=== PATIENT | female | born 1980 | race Caucasian/White ===

== ENCOUNTER → 2016-08-05 | Outpatient (CLI) | payer MEDICAID ==
[2016-08-05 15:35] LABS: ABSOLUTE BASOPHILS # (AUTO) 0.1 10^3/uL (0.0-0.2); ABSOLUTE EOSINOPHILS # (AUTO) 0.1 10^3/uL (0.0-0.6); ABSOLUTE MONOCYTES (AUTO) 0.3 10^3/uL (0.1-1.4); ABSOLUTE NEUT (AUTO) 4.9 10^3/uL (1.7-8.2); BASOPHILS % (AUTO) 1.1 % (0-2); EOSINOPHILS % (AUTO) 1.8 % (0-6); HEMATOCRIT 32.1 % (36.0-47.0); HEMOGLOBIN 10.6 g/dL (12.0-15.5); HGB HCT DIFFERENCE -0.3; LYMPHOCYTES % (AUTO) 26.5 % (13-45); MEAN CORPUSCULAR HEMOGLOBIN 26.7 pg (27.0-33.4); MEAN CORPUSCULAR HGB CONC 32.9 g/dL (32.0-36.0); MEAN CORPUSCULAR VOLUME 81 fl (80-97); MONOCYTES % (AUTO) 4.6 % (3-13); RED BLOOD COUNT 3.96 10^6/uL (3.72-5.28); RED CELL DISTRIBUTION WIDTH 14.8 % (11.5-14.0); WHITE BLOOD COUNT 7.5 10^3/uL (4.0-10.5)
[2016-08-05 15:54] LABS: ANION GAP 13 (5-19); BLOOD UREA NITROGEN 19 mg/dL (7-20); CALCIUM 9.6 mg/dL (8.4-10.2); CARBON DIOXIDE 26 mmol/L (22-30); CHLORIDE 101 mmol/L (98-107); GLUCOSE 78 mg/dL (75-110); POTASSIUM 4.5 mmol/L (3.6-5.0); SODIUM 140.3 mmol/L (137-145)
[2016-08-05 16:01] LABS: LITHIUM < 0.2 mEq/L (0.6-1.2)
[2016-08-05 16:21] LABS: THYROID STIMULATING HORMONE 3.15 uIU/mL (0.47-4.68)
== END ==
LOC: OD 14:26
PROVIDERS: ATTEND Psychiatry & Neurology Psychiatry
DX: F31.9 Bipolar disorder, unspecified (principal); Z79.899 Other long term (current) drug therapy
CPT/HCPCS: 36415; 80048; 80178; 84439; 84443; 85025

== ENCOUNTER 2016-10-15 08:12 | Outpatient (CLI) | payer MEDICAID ==
[~2016-10-15 08:12] MED LIST: DIPHENHYDRAMINE HCL 50 MG/ML VIAL IV PRN; FAMOTIDINE INJ/PF 20 MG/2 ML SDV IV PRN; IRON DEXTRAN COMPLEX 25 MG in SYRINGE, DISPOSABLE, 1 EACH IV PRN; IRON DEXTRAN COMPLEX IV PRN; METHYLPREDNISOLONE INJ 125 MG/2 ML SDV IV PRN; NORMAL SALINE 250 ML IV PRN; NORMAL SALINE IV PRN
[2016-10-15 09:28] VITALS: BP 129/50
== END 2016-10-15 15:31 | disposition home or self-care (01) ==
LOC: II 08:12 → 5TH 08:16 → II 15:31
PROVIDERS: ATTEND Internal Medicine Medical Oncology
PROC: 3E033GC Introduction of Other Therapeutic Substance into Peripheral Vein, Percutaneous Approach (ICD-10-PCS; principal; 2016-10-15)
PROC: 3E0333Z Introduction of Anti-inflammatory into Peripheral Vein, Percutaneous Approach (ICD-10-PCS; 2016-10-15)
DX: E61.1 Iron deficiency (principal); Z98.84 Bariatric surgery status
CPT/HCPCS: 96367; 96375; J1200; J1750; J2930; J7040; J3490; S0028; 96365; 96366; 96376

== ENCOUNTER 2017-01-06 07:28 | Emergency (ER) | payer MEDICAID ==
--- NOTE | 2017-01-06 08:25 | ER Document Report ---
HPI - HPI Patient complains to provider of: dry, burning mouth Onset: Last week Onset/Duration: Persistent Pain Level: 4 Context: 37 yo female with sjogrens syndrome is c/o dry mouty, burning mouth, sore inside lower lip which is really bothering her. No fever or chills. No chest pain or SOB. No cough. No vomiting or diarrhea. Anxious, did not take her xanax this morning. Takes prednisone daily. Associated Symptoms: None Exacerbated by: Denies Relieved by: Denies Similar symptoms previously: Yes Recently seen / treated by doctor: No - ROS ROS below otherwise negative: Yes Systems Reviewed and Negative: Yes All other systems reviewed and negative - CARDIOVASCULAR Cardiovascular: DENIES: Chest pain - REPRODUCTIVE Reproductive: DENIES: : Past Medical History - General Information source: Patient - Social History Smoking Status: Never Smoker Chew tobacco use (# tins/day): No Frequency of alcohol use: None Drug Abuse: None Lives with: Family Family History: Reviewed & Not Pertinent Patient has suicidal ideation: No Patient has homicidal ideation: No - Past Medical History Cardiac Medical History: Reports: None Pulmonary Medical History: Reports: Hx Asthma, Hx Bronchitis Renal/ Medical History: Denies: Hx Peritoneal Dialysis Musculoskeltal Medical History: Reports Other - sjogrens Psychiatric Medical History: Reports: Hx Bipolar Disorder, Hx Depression Surgical Hx: Negative - Immunizations Hx Diphtheria, Pertussis, Tetanus Vaccination: No Vertical Provider Document - CONSTITUTIONAL Agree With Documented VS: Yes Exam Limitations: No Limitations General Appearance: Other - anxious - INFECTION CONTROL TRAVEL OUTSIDE OF THE [place] IN LAST 30 DAYS: No - HEENT HEENT: Normocephalic. negative: Conjuctival Injection, Tympanic Membrane Red Notes: mouth dry, no ulcers, angular chelitis, no thrush. - NECK Neck: Supple. negative: Lymphadenopathy-Left, Lymphadenopathy-Right - RESPIRATORY Respiratory: Breath Sounds Normal, No Respiratory Distress O2 Sat by Pulse Oximetry: 100 - CARDIOVASCULAR Cardiovascular: Regular Rate, Regular Rhythm - GI/ABDOMEN Gastrointestinal: Abdomen Soft, Abdomen Non-Tender - MUSCULOSKELETAL/EXTREMETIES Musculoskeletal/Extremeties: MAEW, FROM - NEURO Level of Consciousness: Awake, Alert - DERM Integumentary: Warm, Dry, No Rash Course - Vital Signs Vital signs: Temp Pulse Resp BP Pulse Ox 98.5 F 90 22 H 139/65 H 100 01/06/17 07:32 01/06/17 07:32 01/06/17 07:32 01/06/17 07:34 01/06/17 07:32 Discharge - Discharge Clinical Impression: Dry mouth, Angular cheilitis Sjogrens syndrome Qualifiers: Sjogren's organ involvement: other organ involvement Qualified Code(s): 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 If you do not receive a survey, then you can go to the [facility] website, [email or web address] and place your comments about your very good care. Thank you very much. It was a pleasure being your medical provider today. Prescriptions: Nystatin 400,000 unit PO QID #120 ml Saliva Substitution Comb No.10 [Neutrasal] 1 each MM DAILY #10 [email or web address] Referrals: LILLY DOS SANTOS MD [Primary Care Provider] - Follow up as needed
[2017-01-06 09:16] VITALS: BP 140/92
== END 2017-01-06 09:18 | disposition home or self-care (01) ==
LOC: ER 07:28
DX: K13.0 Diseases of lips (principal); R68.2 Dry mouth, unspecified; F41.9 Anxiety disorder, unspecified; Z79.899 Other long term (current) drug therapy
CPT/HCPCS: 99283

== ENCOUNTER → 2017-06-02 | Outpatient (CLI) | payer MEDICAID ==
--- NOTE | 2017-06-02 11:09 | WOMENS IMAGING REPORT ---
EXAM DESCRIPTION: TRANSVAGINAL ULTRASOUND COMPLETED DATE/TIME: 06/02/2017 10:22 am REASON FOR STUDY: PELVIC AND PERINEAL PAIN; R10.2 E28.2 POLYCYSTIC OVARIAN SYNDROME R10.2 PELVIC A ND PERINEAL PAIN COMPARISON: None. TECHNIQUE: Dynamic and static grayscale images acquired of the pelvis via transvaginal approach and recorded on PACS. Additional selected color Doppler and spectral images recorded. LIMITATIONS: Body habitus. FINDINGS: UTERUS: Contour normal. No mass. ENDOMETRIAL STRIPE: IUD. CERVIX: Nabothian cyst. RIGHT OVARY: No abnormal masses. RIGHT OVARY DOPPLER: Normal arterial vascular flow without evidence for torsion. LEFT OVARY: No abnormal masses. LEFT OVARY DOPPLER: Normal arterial vascular flow without evidence for torsion. FREE FLUID: None noted. OTHER: No other significant finding. MEASUREMENTS: UTERUS: 9.0 x 5.1 x 4.8 cm ENDOMETRIAL STRIPE: 4 mm RIGHT OVARY: 2.7 x 2.8 x 2.3 cm LEFT OVARY: 2.6 x 1.9 x 3.4 cm IMPRESSION: IUD. No evidence of ovarian cyst. TECHNICAL DOCUMENTATION: JOB ID: [id number] [employer]- All Rights Reserved
== END ==
LOC: WI 09:51
PROVIDERS: ATTEND Obstetrics & Gynecology Gynecology
DX: E28.2 Polycystic ovarian syndrome (principal); R10.2 Pelvic and perineal pain; Z97.5 Presence of (intrauterine) contraceptive device
CPT/HCPCS: 76830

== ENCOUNTER → 2018-05-17 | Outpatient (CLI) | payer MEDICAID ==
--- NOTE | 2018-05-17 20:47 | RADIOLOGY REPORT (SQ) ---
EXAM DESCRIPTION: KNEE LEFT 3 VIEWS COMPLETED DATE/TIME: 05/17/2018 8:35 pm REASON FOR STUDY: LEFT HIP/LEFT KNEE PAIN M25.552 PAIN IN LEFT HIP M25.562 PAIN IN LEFT KNEE Fall COMPARISON: None. NUMBER OF VIEWS: Three views. TECHNIQUE: AP, lateral, and sunrise patella radiographic images acquired of the left knee. LIMITATIONS: None. FINDINGS: MINERALIZATION: Normal. BONES: No acute fracture or dislocation. No worrisome bone lesions. Lateral subluxation of the rome lla. JOINT: No effusion. SOFT TISSUES: No soft tissue swelling. No radio-opaque foreign body. OTHER: No other significant finding. IMPRESSION: No acute fracture. Lateral subluxation of the patella. TECHNICAL DOCUMENTATION: JOB ID: [id number] [employer]- All Rights Reserved Reading location - IP/workstation name: [email or web address]
--- NOTE | 2018-05-17 20:48 | RADIOLOGY REPORT (SQ) ---
EXAM DESCRIPTION: HIP LEFT AP/LATERAL COMPLETED DATE/TIME: 05/17/2018 8:35 pm REASON FOR STUDY: LEFT HIP/LEFT KNEE PAIN M25.552 PAIN IN LEFT HIP M25.562 PAIN IN LEFT KNEE COMPARISON: None. NUMBER OF VIEWS: Two views. TECHNIQUE: AP pelvis and additional frog-leg view of the left hip. LIMITATIONS: None. FINDINGS: MINERALIZATION: Normal. LEFT HIP: No fracture or dislocation. No worrisome bone lesions. RIGHT HIP: No fracture or dislocation. No worrisome bone lesions. PUBIS AND ISCHIUM: No fracture. PELVIS: No fracture. SACRUM: No fracture or dislocation. No worrisome bone lesions. LOWER LUMBAR SPINE: No fracture or dislocation. No worrisome bone lesions. No significant disc disea se. SOFT TISSUES: IUD in expected location. OTHER: No other significant finding. IMPRESSION: NEGATIVE STUDY OF THE LEFT HIP AND PELVIS. NO RADIOGRAPHIC EVIDENCE OF ACUTE INJURY. TECHNICAL DOCUMENTATION: JOB ID: [id number] [employer]- All Rights Reserved Reading location - IP/workstation name: [email or web address]
== END ==
LOC: RAD 19:49
PROVIDERS: ATTEND Nurse Practitioner Family
DX: M25.552 Pain in left hip (principal); M25.562 Pain in left knee; S83.012A Lateral subluxation of left patella, initial encounter; X58.XXXA Exposure to other specified factors, initial encounter

== ENCOUNTER 2018-05-19 18:38 | Emergency (ER) | payer MEDICAID ==
--- NOTE | 2018-05-19 22:05 | ER Document Report ---
ED General - General Chief Complaint: Trouble Walking Stated Complaint: FALL,HEADACHE Time Seen by Provider: 05/19/18 22:04 Notes: Patient is a 38-year-old female who presents to the ED after being referred from urgent care due to some ataxia. She has been ongoing for approximately a week. She said a few falls. She says this started when she started having a lot of nasal congestion. She says she feels as if her equilibrium is off. She says she has a headache but is more of a sinus headache over her frontal sinuses. Does have a history of chronic vertigo. She is followed by neurologist for this. She also has history of rheumatoid arthritis and sees a certified medical technician for this. She was recent diagnosed with the laterally subluxed patella. She has been referred to orthopedics. She is upcoming appointment with orthopedist in regards to her left knee. She says that she does have some knee pain when she walks however she feels that her gait disturbance is more related to her equilibrium being off. She says she feels as if she starts to lean to the left when she walks. She denies any discoordination of movement of her hands or feet. No facial droop or slurred speech. No fevers. No other complaints at this time. TRAVEL OUTSIDE OF THE [place] IN LAST 30 DAYS: No - Related Data Allergies/Adverse Reactions: No Known Allergies Allergy (Verified 05/19/18 18:39) Past Medical History - Social History Smoking Status: Never Smoker Chew tobacco use (# tins/day): No Frequency of alcohol use: None Drug Abuse: None Family History: Reviewed & Not Pertinent Patient has suicidal ideation: No Patient has homicidal ideation: No - Past Medical History Cardiac Medical History: Reports: Hx Heart Attack - IRREGULAR HEARTRATE AT TIMES Denies: Hx Coronary Artery Disease, Hx Hypertension Pulmonary Medical History: Reports: Hx Asthma, Hx Bronchitis Denies: Hx COPD, Hx Pneumonia Neurological Medical History: Denies: Hx Cerebrovascular Accident, Hx Seizures Renal/ Medical History: Denies: Hx Peritoneal Dialysis Musculoskeletal Medical History: Denies Hx Arthritis Psychiatric Medical History: Reports: Hx Bipolar Disorder, Hx Depression - Immunizations Hx Diphtheria, Pertussis, Tetanus Vaccination: No Review of Systems - Review of Systems Notes: My Normal Review Basic REVIEW OF SYSTEMS: CONSTITUTIONAL : Denies fever, chills, or sweats. EENT: Nasal congestion and sinus pressure CARDIOVASCULAR: Denies chest pain. RESPIRATORY: Denies cough, cold, or chest congestion. Denies shortness of breath, difficulty breathing, or wheezing. GASTROINTESTINAL: Denies abdominal pain. Denies nausea, vomiting, or diarrhea. GENITOURINARY: Denies difficulty urinating, painful urination, burning, frequency, or blood in urine. MUSCULOSKELETAL: Denies neck or back pain or joint pain or swelling. SKIN: Denies rash or skin lesions. NEUROLOGICAL: Denies altered mental status or loss of consciousness. Denies headache. Denies weakness or paralysis or loss of use of either side. Denies problems with speech. Leans to left when walking. Denies sensory or motor loss. ALL OTHER SYSTEMS REVIEWED AND NEGATIVE. Physical Exam - Vital signs Vitals: Temp Pulse Resp BP Pulse Ox 98.4 F 80 18 137/94 H 80 L 05/19/18 18:42 05/19/18 18:42 05/19/18 18:42 05/19/18 18:42 05/19/18 18:42 - Notes Notes: General Appearance: Well nourished, alert, cooperative, no acute distress, no obvious discomfort. Audible nasal congestion on exam. Vitals: reviewed, See vital signs table. Head: no swelling or tenderness to the head Eyes: PERRL, EOMI, Conjuctiva clear Mouth: No decreasd moisture Throat: No tonsillar inflammation, No airway obstruction, No lymphadenopathy Neck: Supple, no neck tenderness, No thyromegaly Lungs: No wheezing, No rales, No rhonci, No accessory muscle use, good air exchange bilaterally. Heart: Normal rate, Regular rythm, No murmur, no rub Abdomen: Normal BS, soft, No rigidity, No abdominal tenderness, No guarding, no rebound, no abdominal masses, no organomegaly Extremities: strength 5/5 in all extremities, good pulses in all extremities, no swelling or tenderness in the extremities, no edema. Skin: warm, dry, appropriate color, no rash Neuro: speech clear, oriented x 3, normal affect, responds appropriately to questions. Cranial nerves II through XII are intact. Distal sensation intact. Patient is on extremities without difficulty. She has normal finger to nose testing. Normal coordination of movements of both hands and feet. She is able to stand. When she stands and walks she does start doing some to her left. She does seem to favor her right leg a little bit more when she walks. Course - Re-evaluation Re-evalutation: 05/20/18 04:14 Patient does have some gait disturbance. She does need some to the left. Initially she did not think she had any recent head imaging and therefore I did do a CT scan of her head which was negative. I talked about MRI and then she remembered that she does have an MRI of her head a few months ago that was ordered by her neurologist. She said this was normal. I think is unlikely that her dizziness or gait disturbance related to a central neurologic etiology because the patient otherwise has normal cerebellar signs including normal finger to nose finger testing, normal coronation movements of both hands and feet. She has no focal weakness or numbness in her extremities. She has no focal neurologic deficits on exam. I think her gait disturbance is related partially to some dizziness that could be related to her chronic vertigo that is worsened by her current sinus infection. Also I think her gait is being affected by the fact that her left knee is giving her problems with the lateral subluxation of her patella. She is scheduled to see an orthopedist about her knee. I will write her prescription for a walker to help prevent her from falling. I encouraged her to get a Velcro knee brace for the left knee. I formed her that even though I think her vertigo is unlikely to be a central neurologic cause that she should still follow-up closely with her neurologist for reevaluation and reassessment. I encouraged her return to ER if she has worsening of her symptoms or feels unwell. Patient agrees with plan will be discharged home. Dictation of this chart was performed using voice recognition software; therefore, there may be some unintended grammatical errors. 05/20/18 04:17 Of note there is one vital signs shows the patient's pulse ox is 80%. This is obviously an error in this patient's pulse ox the remainder of the stay was 100 % on room air without any oxygen supplementation. Patient never had any shortness of breath during her stay. - Vital Signs Vital signs: Temp Pulse Resp BP Pulse Ox 98.6 F 88 17 128/93 H 100 05/20/18 01:01 05/19/18 21:51 05/20/18 01:01 05/20/18 01:01 05/20/18 01:01 - Laboratory Result Diagrams: 05/19/18 22:48 05/19/18 22:48 Laboratory results interpreted by me: 05/19/18 05/19/18 05/19/18 22:48 22:48 23:55 Hgb 10.7 L Hct 31.6 L RDW 14.5 H Carbon Dioxide 32 H Glucose 74 L Urine Urobilinogen 4.0 H - EKG Interpretation by Me Additional EKG results interpreted by me: 05/19/18 22:05 EKG is reviewed and interpreted by me. EKG shows sinus rhythm with a rate of [address] segment elevation or depression. LA interval, QRS durations and intervals are within normal range. Discharge - Discharge Clinical Impression: Ataxia URI (upper respiratory infection) Qualifiers: URI type: unspecified URI Qualified Code(s): J06.9 - Acute upper respiratory infection, unspecified Lateral subluxation of patella Qualifiers: Encounter type: subsequent encounter Laterality: left Qualified Code(s): S83.012D - Lateral subluxation of left patella, subsequent encounter Condition: Good Disposition: HOME, SELF-CARE Additional Instructions: I suspect your dizziness and balance issues could be related to your sinus pressure. Your CT scan is negative. Despite your normal workup today I still want you to follow up within a week with your neurologist. Please have a low threshold to return to the ER if you have worsening of your symptoms, fevers, severe headache, recurrent falls, or feel unwell. Please buy an over the counter knee brace with a hole cut out for your knee cap. Wear this on your left knee for support and follow up with the orthopedist. Prescriptions: Amox Tr/Potassium Clavulanate [Augmentin 875-125 Tablet] 1 tab PO BID 10 Days tablet Walker [Folding Walker] 1 each MC ASDIR PRN #1 each PRN Reason: Referrals: JAKE RG MD [EMERITUS] - Follow up in 3-5 days
[2018-05-19] MEDS ORDERED: MECLIZINE HCL 25 MG TABLET PO ONE (22:23)
--- NOTE | 2018-05-19 22:55 | RADIOLOGY REPORT (SQ) ---
CT HEAD WITHOUT IV CONTRAST HISTORY: Fall. COMPARISON: None. TECHNIQUE: CT scan of the brain without IV contrast. This exam was performed according to our departmental dose-optimization program, which includes automated exposure control, adjustment of the mA and/or kV according to patient size and/or use of iterative reconstruction technique. FINDINGS: The ventricles, cisterns, and sulci are age-appropriate. Gordon-white matter differentiation is preserved without evidence of acute territorial infarction. No intracranial hemorrhage, midline shift, or extra-axial fluid collection is identified. Paranasal sinuses are clear. Calvarium is intact. IMPRESSION: No acute intracranial abnormality.
[2018-05-19 23:03] LABS: ABSOLUTE BASOPHILS # (AUTO) 0.1 10^3/uL (0.0-0.2); ABSOLUTE EOSINOPHILS # (AUTO) 0.1 10^3/uL (0.0-0.6); ABSOLUTE LYMPHOCYTES (AUTO) 2.3 10^3/uL (0.5-4.7); ABSOLUTE MONOCYTES (AUTO) 0.4 10^3/uL (0.1-1.4); ABSOLUTE NEUT (AUTO) 4.9 10^3/uL (1.7-8.2); BASOPHILS % (AUTO) 0.9 % (0-2); EOSINOPHILS % (AUTO) 1.4 % (0-6); HEMATOCRIT 31.6 % (36.0-47.0); HEMOGLOBIN 10.7 g/dL (12.0-15.5); LYMPHOCYTES % (AUTO) 29.6 % (13-45); MEAN CORPUSCULAR HEMOGLOBIN 28.5 pg (27.0-33.4); MEAN CORPUSCULAR HGB CONC 33.8 g/dL (32.0-36.0); MEAN CORPUSCULAR VOLUME 84 fl (80-97); MONOCYTES % (AUTO) 4.9 % (3-13); PLATELET COUNT 270 10^3/uL (150-450); RED BLOOD COUNT 3.76 10^6/uL (3.72-5.28); RED CELL DISTRIBUTION WIDTH 14.5 % (11.5-14.0); SEGMENTED NEUTROPHILS % (AUTO) 63.2 % (42-78); TOTAL CELLS COUNTED % (AUTO) 100 %; WHITE BLOOD COUNT 7.7 10^3/uL (4.0-10.5)
[2018-05-19 23:20] LABS: ALBUMIN 3.7 g/dL (3.5-5.0); ALKALINE PHOSPHATASE 63 U/L (38-126); ANION GAP 6 (5-19); ASPARTATE AMINO TRANSFERASE 26 U/L (14-36); BLOOD UREA NITROGEN 15 mg/dL (7-20); CALCIUM 9.2 mg/dL (8.4-10.2); CARBON DIOXIDE 32 mmol/L (22-30); CHLORIDE 101 mmol/L (98-107); GLUCOSE 74 mg/dL (75-110); POTASSIUM 4.7 mmol/L (3.6-5.0); SODIUM 138.6 mmol/L (137-145)
[2018-05-19 23:21] LABS: ALANINE AMINOTRANSFERASE 52 U/L (9-52); BILIRUBIN,DIRECT 0.2 mg/dL (0.0-0.4); BILIRUBIN,TOTAL 0.3 mg/dL (0.2-1.3); TOTAL PROTEIN 6.3 g/dL (6.3-8.2)
[2018-05-20 00:15] LABS: APPEARANCE,URINE SLIGHTLY-CLOUDY; BILIRUBIN,URINE NEGATIVE (NEGATIVE); COLOR,URINE YELLOW; GLUCOSE, URINE NEGATIVE (NEGATIVE); KETONES,URINE NEGATIVE (NEGATIVE); LEUKOCYTE ESTERASE,URINE NEGATIVE (NEGATIVE); NITRITE,URINE NEGATIVE (NEGATIVE); PROTEIN,URINE NEGATIVE (NEGATIVE); URINE SPECIFIC GRAVITY 1.025
[2018-05-20 01:29] VITALS: BP 128/93
--- NOTE | 2018-05-20 08:16 | EKG REPORT ---
SEVERITY:- BORDERLINE ECG - SINUS RHYTHM BORDERLINE T ABNORMALITIES, INFERIOR LEADS : Confirmed by: Priti Umanzor MD 20-May-2018 08:15:46
== END 2018-05-20 01:25 | disposition home or self-care (01) ==
LOC: ER 18:38
DX: S83.012A Lateral subluxation of left patella, initial encounter (principal); W19.XXXA Unspecified fall, initial encounter; R27.0 Ataxia, unspecified; J01.90 Acute sinusitis, unspecified; R51 Headache; R09.81 Nasal congestion; R42 Dizziness and giddiness; J45.909 Unspecified asthma, uncomplicated; M06.9 Rheumatoid arthritis, unspecified
CPT/HCPCS: 36415; 70450; 80053; 81001; 84703; 85025; 93005; 93010; 99284

== ENCOUNTER 2018-11-07 22:44 | Emergency (ER) | payer MEDICAID ==
[2018-11-08 00:12] LABS: ABSOLUTE BASOPHILS # (AUTO) 0.1 10^3/uL (0.0-0.2); ABSOLUTE EOSINOPHILS # (AUTO) 0.1 10^3/uL (0.0-0.6); ABSOLUTE LYMPHOCYTES (AUTO) 2.4 10^3/uL (0.5-4.7); ABSOLUTE MONOCYTES (AUTO) 0.6 10^3/uL (0.1-1.4); ABSOLUTE NEUT (AUTO) 6.6 10^3/uL (1.7-8.2); EOSINOPHILS % (AUTO) 0.5 % (0-6); LYMPHOCYTES % (AUTO) 24.4 % (13-45); MEAN CORPUSCULAR HEMOGLOBIN 29.2 pg (27.0-33.4); MEAN CORPUSCULAR HGB CONC 33.4 g/dL (32.0-36.0); MEAN CORPUSCULAR VOLUME 87 fl (80-97); MONOCYTES % (AUTO) 6.3 % (3-13); PLATELET COUNT 345 10^3/uL (150-450); RED BLOOD COUNT 3.78 10^6/uL (3.72-5.28); RED CELL DISTRIBUTION WIDTH 14.2 % (11.5-14.0); SEGMENTED NEUTROPHILS % (AUTO) 67.8 % (42-78); TOTAL CELLS COUNTED % (AUTO) 100 %; WHITE BLOOD COUNT 9.7 10^3/uL (4.0-10.5)
[2018-11-08 00:20] LABS: APPEARANCE,URINE SLIGHTLY-CLOUDY; BILIRUBIN,URINE NEGATIVE (NEGATIVE); COLOR,URINE YELLOW; GLUCOSE, URINE NEGATIVE (NEGATIVE); KETONES,URINE NEGATIVE (NEGATIVE); LEUKOCYTE ESTERASE,URINE NEGATIVE (NEGATIVE); NITRITE,URINE NEGATIVE (NEGATIVE); PROTEIN,URINE NEGATIVE (NEGATIVE); URINE SPECIFIC GRAVITY 1.024
[2018-11-08 00:32] LABS: ALANINE AMINOTRANSFERASE 36 U/L (9-52); ALBUMIN 4.4 g/dL (3.5-5.0); ALKALINE PHOSPHATASE 51 U/L (38-126); ANION GAP 14 (5-19); ASPARTATE AMINO TRANSFERASE 25 U/L (14-36); BILIRUBIN,DIRECT 0.2 mg/dL (0.0-0.4); BILIRUBIN,TOTAL 0.6 mg/dL (0.2-1.3); BLOOD UREA NITROGEN 26 mg/dL (7-20); CALCIUM 10.1 mg/dL (8.4-10.2); CARBON DIOXIDE 25 mmol/L (22-30); CHLORIDE 102 mmol/L (98-107); GLUCOSE 76 mg/dL (75-110); POTASSIUM 4.4 mmol/L (3.6-5.0); TOTAL PROTEIN 7.4 g/dL (6.3-8.2)
[2018-11-08 00:54] LABS: FREE T3 3.37 pg/mL (2.77-5.27); FREE T4 (FREE THYROXINE) 0.86 ng/dL (0.78-2.19)
[2018-11-08 02:40] LABS: THYROID STIMULATING HORMONE 2.3 uIU/mL (0.47-4.68)
[2018-11-08 03:43] VITALS: BP 137/86
--- NOTE | 2018-11-08 04:52 | ER Document Report ---
Entered by ONDINA MARIE SCRIBE 11/08/18 0021 Acting as scribe for:VITALY BLEVINS DO ED Dizziness/Weakness - General Chief Complaint: Dizziness Stated Complaint: DIZZY Time Seen by Provider: 11/07/18 23:11 Primary Care Provider: NAY SOUZA NP [COMMUNITY BASED STAFF] - Follow up as needed Notes: Patient is a 38-year-old female that presents to the emergency department complaining of shaking in her arms and hands. Patient states she has also been confused, tired, having seizures, and had memory issues. Specifically the patient states she has had a hard time remembering where her keys are and forgetting common vocabulary. Onset of the shaking was a few months ago but worsened 2 weeks ago. Patient states that she is experiencing numbness in her fingers that started 2 weeks ago. Patient states that her blood sugar was 80 while being shaky and when her blood sugar improved to 110 with eating the tremor improved however today she still had a tremor when it raised to 117. TRAVEL OUTSIDE OF THE [place] IN LAST 30 DAYS: No - Related Data Allergies/Adverse Reactions: No Known Allergies Allergy (Verified 11/08/18 00:22) Past Medical History - General Information source: Patient - Social History Smoking Status: Never Smoker Chew tobacco use (# tins/day): No Frequency of alcohol use: Occasional Drug Abuse: None Family History: Reviewed & Not Pertinent Patient has suicidal ideation: No Patient has homicidal ideation: No - Past Medical History Cardiac Medical History: Reports: Hx Heart Attack - IRREGULAR HEARTRATE AT TIMES, Hx Hypercholesterolemia Pulmonary Medical History: Reports: Hx Asthma, Hx Bronchitis Neurological Medical History: Reports: Hx Migraine - with Vertigo, Hx Seizures Musculoskeletal Medical History: Reports Hx Arthritis - RA Psychiatric Medical History: Reports: Hx Bipolar Disorder, Hx Depression Past Surgical History: Reports: Hx Oral Surgery - Multiple teeth extractions, Hx Tonsillectomy - Immunizations Hx Diphtheria, Pertussis, Tetanus Vaccination: No Review of Systems - Review of Systems Constitutional: See HPI EENT: No symptoms reported Cardiovascular: No symptoms reported Respiratory: No symptoms reported Gastrointestinal: No symptoms reported Genitourinary: No symptoms reported Female Genitourinary: No symptoms reported Musculoskeletal: No symptoms reported Skin: No symptoms reported Hematologic/Lymphatic: No symptoms reported Neurological/Psychological: See HPI, Confusion, Seizure, Numbness, Tremor -: Yes All other systems reviewed and negative Physical Exam - Vital signs Vitals: Temp Pulse Resp BP Pulse Ox 98.8 F 110 H 20 153/98 H 97 11/07/18 22:50 11/07/18 22:50 11/07/18 22:50 11/07/18 22:50 11/07/18 22:50 Interpretation: Hypertensive, Tachycardic - Notes Notes: PHYSICAL EXAM GENERAL: Alert, interacts well. Mildly anxious, morbidly obese. HEAD: Normocephalic, atraumatic. EYES: Pupils equal, round, and reactive to light. Extraocular movements intact. ENT: Oral mucosa moist, tongue midline. NECK: Full range of motion. Supple. Trachea midline. LUNGS: Clear to auscultation bilaterally, no wheezes, rales, or rhonchi. No respiratory distress. HEART: Regular rate and rhythm. No murmurs, gallops, or rubs. ABDOMEN: Soft, non-tender. Non-distended. Bowel sounds present in all 4 quadrants. No guarding, rigidity, or rebound. EXTREMITIES: 5 out of 5 muscle strength in all 4 extremities, 5 out of 5 great toe raising strength bilaterally. Moves all 4 extremities spontaneously. No edema, radial and dorsalis pedis pulses 2/4 bilaterally. No cyanosis. NEUROLOGICAL: Alert and oriented x3. Normal speech. Cranial nerves II through XII grossly intact. Biceps and patellar DTRs 2+ bilaterally. Sensation intact. [id number] and [id number] testing intact. Patient had a tremor when resting and when describing the tremor worsened however when participating in [id number] testing the tremor completely resolved, when otherwise distracted the tremor had also completely resolved. PSYCH: Mildly anxious. SKIN: Warm, dry, normal turgor. No rashes or lesions noted. Course - Re-evaluation Re-evalutation: 11/08/18 03:18 CBC shows mild anemia with hemoglobin 11, patient states her hemoglobin is normally in the 9 so this is an improvement, no leukocytosis, CMP grossly unremarkable, no electrolyte abnormalities, thyroid function tests are normal, test is negative, urinalysis unremarkable. EKG is nonischemic. Tremor disappears when she is distracted or when she is trying to do something. No focal neurologic deficits are noted. At this point patient will be discharged home, encourage patient to follow-up with her primary care physician and neurology for these tremors as well as for her seizures that she describes as an episode where she blacks out but apparently is able to stay fully functional through the entire thing. These are not classic for seizure. These are not new tonight. No indication for CT scan at this time. Discharged home. - Vital Signs Vital signs: Temp Pulse Resp BP Pulse Ox 98.2 F 83 19 137/86 H 97 11/08/18 03:42 11/08/18 03:42 11/08/18 03:42 11/08/18 03:42 11/08/18 03:42 - Laboratory Result Diagrams: 11/07/18 23:50 11/07/18 23:50 Laboratory results interpreted by me: 11/07/18 11/07/18 11/07/18 22:54 23:50 23:50 Hgb 11.0 L Hct 33.0 L RDW 14.2 H BUN 26 H POC Glucose 119 H Urine Urobilinogen 11/07/18 23:50 Hgb Hct RDW BUN POC Glucose Urine Urobilinogen 2.0 H - EKG Interpretation by Me Additional EKG results interpreted by me: 11/08/18 03:19 EKG shows sinus rhythm at a rate of 84, left axis deviation, normal intervals, rapid R wave progression, no ST segment elevations or depressions, T wave inversions noted in lead III and aVF per my interpretation. Discharge - Discharge Clinical Impression: Tremor, Confusion Condition: Stable Disposition: HOME, SELF-CARE Additional Instructions: Today your blood work was relatively normal. All it showed is a slightly low blood count however there is no need for blood transfusion and as we discussed your hemoglobin was higher tonight than it usually is so this is an improvement. Your tremor disappeared when you were not thinking about it and when you were trying to do things. This is a good sign. We did not find any electrolyte abnormalities or any problems with your liver or your kidneys. At this point I would like you to follow-up with your neurologist and your primary care physician as an outpatient. Referrals: NAY SOUZA, [employer] OBSERVER [COMMUNITY BASED STAFF] - Follow up as needed I personally performed the services described in the documentation, reviewed and edited the documentation which was dictated to the scribe in my presence, and it accurately records my words and actions.
--- NOTE | 2018-11-08 09:42 | EKG REPORT ---
SEVERITY:- BORDERLINE ECG - SINUS RHYTHM BORDERLINE T ABNORMALITIES, INFERIOR LEADS : Confirmed by: Priti Umanzor MD 08-Nov-2018 09:41:10
== END 2018-11-08 03:29 | disposition home or self-care (01) ==
LOC: ER 22:44
DX: R25.1 Tremor, unspecified (principal); R41.0 Disorientation, unspecified; R42 Dizziness and giddiness; R20.0 Anesthesia of skin; J45.909 Unspecified asthma, uncomplicated
CPT/HCPCS: 36415; 80053; 81001; 82962; 83735; 84439; 84443; 84481; 84703; 85025; 93005; 93010; 99284

== ENCOUNTER 2018-12-03 11:34 | Emergency (ER) | payer MEDICAID ==
--- NOTE | 2018-12-03 11:54 | ER Document Report ---
ED Medical Screen (RME) - General Chief Complaint: Dizziness Stated Complaint: DIZZINESS Time Seen by Provider: 12/03/18 11:46 Mode of Arrival: Ambulatory Information source: Patient Notes: Patient is a 38-year-old female presenting to the emergency department with intermittent complaints of confusion, dizziness, tremors, tingling in her elbow, arms and cheek. She states these have been going on for approximately 3 days. She reports that she has had multiple changes of her psychiatric medications lately. Patient was seen here recently and told to go to a neurologist. Patient reports she called the neurologist to schedule an appointment who advised her to come to the emergency department for an evaluation. Exam: Patient appears very anxious, constantly scratching her left arm. No focal neurological deficits noted. I have greeted and performed a rapid initial assessment of this patient. A comprehensive ED assessment and evaluation of the patient, analysis of test results and completion of the medical decision making process will be conducted by additional ED providers. Dictation of this chart was performed using voice recognition software; therefore, there may be some unintended grammatical errors. TRAVEL OUTSIDE OF THE [place] IN LAST 30 DAYS: No - Related Data Allergies/Adverse Reactions: No Known Allergies Allergy (Verified 12/03/18 11:39) Past Medical History - Past Medical History Cardiac Medical History: Reports: Hx Heart Attack - IRREGULAR HEARTRATE AT TIMES, Hx Hypercholesterolemia Denies: Hx Coronary Artery Disease, Hx Hypertension Pulmonary Medical History: Reports: Hx Asthma, Hx Bronchitis Denies: Hx COPD, Hx Pneumonia Neurological Medical History: Reports: Hx Migraine - with Vertigo, Hx Seizures. Denies: Hx Cerebrovascular Accident Endocrine Medical History: Comment Only: Hx Diabetes Mellitus Type 2 - Prediabetic Renal/ Medical History: Denies: Hx Peritoneal Dialysis Musculoskeltal Medical History: Reports Hx Arthritis - RA Psychiatric Medical History: Reports: Hx Bipolar Disorder, Hx Depression Past Surgical History: Reports: Hx Oral Surgery - Multiple teeth extractions, Hx Tonsillectomy - Immunizations Hx Diphtheria, Pertussis, Tetanus Vaccination: No Physical Exam - Vital signs Vitals: Temp Pulse Resp BP Pulse Ox 98.5 F 97 16 128/84 H 97 12/03/18 11:38 12/03/18 11:38 12/03/18 11:38 12/03/18 11:38 12/03/18 11:38 Course - Vital Signs Vital signs: Temp Pulse Resp BP Pulse Ox 98.5 F 97 16 128/84 H 97 12/03/18 11:38 12/03/18 11:38 12/03/18 11:38 12/03/18 11:38 12/03/18 11:38
[2018-12-03 12:30] LABS: ABSOLUTE BASOPHILS # (AUTO) 0.1 10^3/uL (0.0-0.2); ABSOLUTE EOSINOPHILS # (AUTO) 0.1 10^3/uL (0.0-0.6); ABSOLUTE MONOCYTES (AUTO) 0.4 10^3/uL (0.1-1.4); ABSOLUTE NEUT (AUTO) 5.5 10^3/uL (1.7-8.2); BASOPHILS % (AUTO) 0.8 % (0-2); EOSINOPHILS % (AUTO) 0.7 % (0-6); HEMOGLOBIN 11.2 g/dL (12.0-15.5); LYMPHOCYTES % (AUTO) 25.3 % (13-45); MEAN CORPUSCULAR HEMOGLOBIN 29.1 pg (27.0-33.4); MEAN CORPUSCULAR VOLUME 88 fl (80-97); MONOCYTES % (AUTO) 5.2 % (3-13); PLATELET COUNT 295 10^3/uL (150-450); RED BLOOD COUNT 3.86 10^6/uL (3.72-5.28); TOTAL CELLS COUNTED % (AUTO) 100 %; WHITE BLOOD COUNT 8.1 10^3/uL (4.0-10.5)
[2018-12-03 12:52] LABS: ALANINE AMINOTRANSFERASE 30 U/L (9-52); ALBUMIN 4.5 g/dL (3.5-5.0); ALKALINE PHOSPHATASE 46 U/L (38-126); ANION GAP 12 (5-19); ASPARTATE AMINO TRANSFERASE 22 U/L (14-36); BILIRUBIN,DIRECT 0.2 mg/dL (0.0-0.4); BILIRUBIN,TOTAL 0.5 mg/dL (0.2-1.3); BLOOD UREA NITROGEN 24 mg/dL (7-20); CALCIUM 9.8 mg/dL (8.4-10.2); CARBON DIOXIDE 25 mmol/L (22-30); CHLORIDE 104 mmol/L (98-107); GLUCOSE 79 mg/dL (75-110); POTASSIUM 4.4 mmol/L (3.6-5.0); SODIUM 140.5 mmol/L (137-145); TOTAL PROTEIN 7.3 g/dL (6.3-8.2)
[2018-12-03 13:33] LABS: APPEARANCE,URINE CLEAR; BILIRUBIN,URINE NEGATIVE (NEGATIVE); COLOR,URINE YELLOW; GLUCOSE, URINE NEGATIVE (NEGATIVE); KETONES,URINE NEGATIVE (NEGATIVE); LEUKOCYTE ESTERASE,URINE NEGATIVE (NEGATIVE); NITRITE,URINE NEGATIVE (NEGATIVE); PROTEIN,URINE NEGATIVE (NEGATIVE); UROBILINOGEN,URINE NEGATIVE mg/dL (<2.0)
--- NOTE | 2018-12-03 14:19 | ER Document Report ---
ED Dizziness/Weakness - General Chief Complaint: Dizziness Stated Complaint: DIZZINESS Time Seen by Provider: 12/03/18 11:46 Primary Care Provider: MICHELE JUDD MD [Primary Care Provider] - Follow up as needed Mode of Arrival: Ambulatory Notes: 38-year-old female patient emergency department for evaluation of abnormal neurological symptoms since she has been starting some new medications for seizures. Followed by neurology. States that she has some intermittent numbness on the left side of her body. No fever. No neck stiffness. No significant headache. Has an appointment with neurology but not for several weeks. Called the neurology office after she was having the symptoms again so sent here for evaluation. Patient states that she had numbness on the left side of her face and left side of the body. This has since resolved. The symptoms have been on and off for several days. TRAVEL OUTSIDE OF THE [place] IN LAST 30 DAYS: No - HPI Onset/Duration: Gradual, Waxing and waning Quality of pain: No pain Severity: Mild Pain Level: Denies - Related Data Allergies/Adverse Reactions: No Known Allergies Allergy (Verified 12/03/18 11:39) Past Medical History - General Information source: Patient - Social History Smoking Status: Never Smoker Frequency of alcohol use: None Lives with: Family Family History: Reviewed & Not Pertinent Patient has suicidal ideation: No Patient has homicidal ideation: No - Past Medical History Cardiac Medical History: Reports: Hx Heart Attack - IRREGULAR HEARTRATE AT TIMES, Hx Hypercholesterolemia Denies: Hx Coronary Artery Disease, Hx Hypertension Pulmonary Medical History: Reports: Hx Asthma, Hx Bronchitis Denies: Hx COPD, Hx Pneumonia Neurological Medical History: Reports: Hx Migraine - with Vertigo, Hx Seizures. Denies: Hx Cerebrovascular Accident Endocrine Medical History: Comment Only: Hx Diabetes Mellitus Type 2 - Prediabetic Renal/ Medical History: Denies: Hx Peritoneal Dialysis Musculoskeletal Medical History: Reports Hx Arthritis - RA Psychiatric Medical History: Reports: Hx Bipolar Disorder, Hx Depression Past Surgical History: Reports: Hx Oral Surgery - Multiple teeth extractions, Hx Tonsillectomy - Immunizations Hx Diphtheria, Pertussis, Tetanus Vaccination: No Review of Systems - Review of Systems Notes: Constitutional: denies: Chills, Diaphoresis, Fever, Malaise, Weakness EENT: denies: Eye discharge, Blurred vision, Tearing, Double vision, Nose congestion, Nose discharge, Throat swelling, Mouth pain Cardiovascular: denies: Palpitations, Heart racing, Orthopnea, Dyspnea, Chest pain Respiratory: denies: Cough, Hurts to breathe, Wheezing, Shortness of breath Gastrointestinal: denies: Abdominal pain, Diarrhea, Nausea, Vomiting, Black stools, bright red blood in stool Genitourinary: denies: Burning, Dysuria, Discharge, Frequency, Flank pain, Hematuria Musculoskeletal: denies: Joint pain, Joint swelling, Muscle pain, Muscle stiffness, back pain Hematologic/Lymphatic: denies: Anemia, Easy bleeding, Easy bruising, Blood clots Neurological/Psychological: denies: Confusion, Dementia, Depression, Loss of consciousness. Weakness on the left side, numbness to the face Skin: No lesions, no masses, no skin breakdown, no abscesses Physical Exam - Vital signs Vitals: Temp Pulse Resp BP Pulse Ox 98.5 F 97 16 128/84 H 97 12/03/18 11:38 12/03/18 11:38 12/03/18 11:38 12/03/18 11:38 12/03/18 11:38 Interpretation: Normal - General General appearance: Appears well, Alert - HEENT Head: Normocephalic, Atraumatic Eyes: Normal Pupils: PERRL - Respiratory Respiratory status: No respiratory distress Chest status: Nontender Breath sounds: Normal Chest palpation: Normal - Cardiovascular Rhythm: Regular Heart sounds: Normal auscultation Murmur: No - Abdominal Inspection: Normal Distension: No distension Bowel sounds: Normal Tenderness: Nontender Organomegaly: No organomegaly - Back Back: Normal, Nontender - Extremities General upper extremity: Normal inspection, Nontender, Normal color, Normal ROM, Normal temperature General lower extremity: Normal inspection, Nontender, Normal color, Normal ROM, Normal temperature, Normal weight bearing. No: Chandler's sign - Neurological Neuro grossly intact: Yes Cognition: Normal Orientation: AAOx4 Manjinder Coma Scale Eye Opening: Spontaneous Manjinder Coma Scale Verbal: Oriented [place] Coma Scale Motor: Obeys Commands [place] Coma Scale Total: 15 Speech: Normal Cranial nerves: Normal Cerebellar coordination: Normal Motor strength normal: LUE, RUE, LLE, RLE Additional motor exam normals: Equal licensed nurse practitioner. No: Involuntary movements, Pronator drift, Weakness Sensory: Normal - Psychological Associated symptoms: Normal affect, Normal mood - Skin Skin Temperature: Warm Skin Moisture: Dry Skin Color: Normal Course - Re-evaluation Re-evalutation: 12/03/18 15:[address] 12/03/18 14:18 IMPRESSION: NORMAL BRAIN CT WITHOUT CONTRAST. EVIDENCE OF ACUTE STROKE: NO. Labs are unremarkable. CT negative. Physical exam is reassuring. Unlikely this represents strokelike activity. Has had recent medication changes which affect the central nervous system. 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 - Vital Signs Vital signs: Temp Pulse Resp BP Pulse Ox 98.5 F 97 16 128/84 H 97 12/03/18 11:38 12/03/18 11:38 12/03/18 11:38 12/03/18 11:38 12/03/18 11:38 - Laboratory Result Diagrams: 12/03/18 12:12 12/03/18 12:12 Laboratory results interpreted by me: 12/03/18 12/03/18 12:12 12:12 Hgb 11.2 L Hct 34.0 L BUN 24 H - EKG Interpretation by Ga EKG shows normal: Sinus rhythm, [place], Intervals, QRS Complexes, ST-T Waves Discharge - Discharge Clinical Impression: Paresthesias Condition: Good Disposition: HOME, SELF-CARE Instructions: Numbness or Paresthesia ([facility]) Additional Instructions: More than likely the symptoms you are having are caused from the medications that you were recently started on. Please do take medications if tolerated. If you intend on stopping please discuss this with your doctor before doing so. In the event that you have worsening symptoms please return. Referrals: MICHELE JUDD MD [Primary Care Provider] - Follow up as needed WILL AUGUSTINE MD [NO LOCAL MD] - Follow up in 3-5 days
--- NOTE | 2018-12-03 15:03 | RADIOLOGY REPORT (SQ) ---
EXAM DESCRIPTION: CT HEAD WITHOUT COMPLETED DATE/TIME: 12/03/2018 2:54 pm REASON FOR STUDY: left sided numbness COMPARISON: 05/19/2018. TECHNIQUE: Axial images acquired through the brain without intravenous contrast. Images reviewed wi th bone, brain and subdural windows. Additional sagittal and coronal reconstructions were generated. Images stored on PACS. All CT scanners at this facility use dose modulation, iterative reconstruction, and/or weight based d osing when appropriate to reduce radiation dose to as low as reasonably achievable (ALARA). [facility]: Dose Right [facility]: CareDose [facility]: Dose Right [facility]: Teradose 4D [facility]: Let's Talk RADIATION DOSE: CT Rad equipment meets quality standard of care and radiation dose reduction techniq ues were employed. CTDIvol: 53.2 mGy. DLP: 1017 mGy-cm. mGy. LIMITATIONS: None. FINDINGS: VENTRICLES: Normal size and contour. CEREBRUM: No masses. No hemorrhage. No midline shift. No evidence for acute infarction. Normal gra y/white matter differentiation. No areas of low density in the white matter. CEREBELLUM: No masses. No hemorrhage. No alteration of density. No evidence for acute infarction. EXTRAAXIAL SPACES: No fluid collections. No masses. ORBITS AND GLOBE: No intra- or extraconal masses. Normal contour of globe without masses. CALVARIUM: No fracture. PARANASAL SINUSES: No fluid or mucosal thickening. SOFT TISSUES: No mass or hematoma. OTHER: No other significant finding. IMPRESSION: NORMAL BRAIN CT WITHOUT CONTRAST. EVIDENCE OF ACUTE STROKE: NO. COMMENT: Quality ID # [id number]: Final reports with documentation of one or more dose reduction techniques (e.g., Automated exposure control, adjustment of the mA and/or kV according to patient size, use of iterative reconstruction technique) TECHNICAL DOCUMENTATION: JOB ID: [id number] [employer]- All Rights Reserved Reading location - IP/workstation name: [email or web address]
[2018-12-03 15:48] LABS: URINE AMPHETAMINES SCREEN UNCONFIRMED POSITIVE; URINE BARBITURATES SCREEN NEGATIVE; URINE BENZODIAZEPINES SCREEN NEGATIVE; URINE COCAINE SCREEN NEGATIVE; URINE MARIJUANA (THC) SCREEN NEGATIVE; URINE METHADONE SCREEN NEGATIVE; URINE PHENCYCLIDINE SCREEN NEGATIVE
[2018-12-03 15:57] VITALS: BP 116/64
--- NOTE | 2018-12-03 16:55 | EKG REPORT ---
SEVERITY:- BORDERLINE ECG - SINUS RHYTHM BORDERLINE T ABNORMALITIES, INFERIOR LEADS : Confirmed by: Hemanth Oro MD 03-Dec-2018 16:53:42
== END 2018-12-03 15:50 | disposition home or self-care (01) ==
LOC: ER 11:34
DX: R20.2 Paresthesia of skin (principal); R42 Dizziness and giddiness; E78.00 Pure hypercholesterolemia, unspecified; I25.2 Old myocardial infarction
CPT/HCPCS: 36415; 70450; 80053; 80307; 81001; 81025; 85025; 93005; 93010; 99284